=== PATIENT | female | born 1995 | race Caucasian/White ===

== ENCOUNTER 2022-06-28 09:59 | Outpatient (CLI) | payer OTHER ==
[2022-06-29 04:09] LABS: IMMUNOGLOBULIN A (IGA) 223 mg/dL (87-352); IMMUNOGLOBULIN G (IGG) 1037 mg/dL (586-1602); IMMUNOGLOBULIN M (IGM) 62 mg/dL (26-217)
[2022-07-04 14:08] LABS: CYSTIC FIBROSIS SCREEN Comment: (.)
== END 2022-06-28 10:00 | disposition home or self-care (01) ==
LOC: LAB 09:59
PROVIDERS: ATTEND Allergy & Immunology
DX: Z71.89 Other specified counseling (principal); R79.89 Other specified abnormal findings of blood chemistry; Z13.29 Encounter for screening for other suspected endocrine disorder; D68.2 Hereditary deficiency of other clotting factors; D68.51 Activated protein C resistance; Z79.01 Long term (current) use of anticoagulants; K92.1 Melena; J30.1 Allergic rhinitis due to pollen; J45.40 Moderate persistent asthma, uncomplicated; R06.09 Other forms of dyspnea
CPT/HCPCS: 81220; 81599; 82784; 82785

== ENCOUNTER 2022-06-29 18:32 | Outpatient (CLI) | payer OTHER ==
--- NOTE | 2022-06-30 09:49 | Ultrasound Report ---
PROCEDURE: Pelvic w/Transvaginal INDICATIONS: INFECTION FOLLOWING SURGERY TECHNIQUE: Real-time scanning was performed of the pelvic organs, with image documentation. Additional endovagi nal scanning was necessary due to incomplete visualization of the adnexal and endometrial structures by transabdominal scanning. COMPARISON: None. FINDINGS: Uterus: Uterus is retroverted and retroflexed and normal in size at 11.3 x 4.1 x 6.2 cm. The myomet rium is homogeneous. The endometrium measures 10 mm in combined thickness. Ovaries: The right ovary measures 6.1 x 3.6 x 5 cm, with a calculated ovarian volume of 37 cc. The left ovary measures 3.7 x 4.4 x 4.1 cm, with a calculated ovarian volume of 35 cc. The right ovary co ntains 2 cystic lesions with low level, internal echogenicity measuring 4.2 x 3.2 x 3.8 cm and 2.1 x 2 x 2.4 cm. The dominant right ovarian cystic lesion also contains The left ovary contains a solid-ap pearing mass with heterogeneous echogenicity measuring 3.3 x 3 x 3.5 cm Less than 12 follicles can b e seen in each ovary. No adnexal masses are seen. Other: No pathologic free abdominal or pelvic fluid. IMPRESSION: 1.Complex right ovarian cystic lesions probably represent hemorrhagic cysts or endometriomas. A dermo id is also a consideration. 6-12 week follow-up is recommended. 2.Solid appearing left ovarian mass measuring 3.3 x 3 x 3.5 cm. Heterogeneous echogenicity may indica te evolving hemorrhagic cyst. 6-12 week follow-up is recommended. Reviewed by: Anibal Talbert on 06/30/2022 9:48 AM [facility] Approved by: Anibal Talbert on 06/30/2022 9:48 AM [facility]UST Station ID: [id number]
== END 2022-06-29 18:33 | disposition home or self-care (01) ==
LOC: DI 18:32
PROVIDERS: ATTEND Nurse Practitioner
DX: T81.42XD Infection following a procedure, deep incisional surgical site, subsequent encounter (principal); R93.89 Abnormal findings on diagnostic imaging of other specified body structures; N83.9 Noninflammatory disorder of ovary, fallopian tube and broad ligament, unspecified

== ENCOUNTER 2022-08-02 21:58 | Outpatient (CLI) | payer OTHER ==
--- NOTE | 2022-08-03 10:23 | Ultrasound Report ---
PROCEDURE: Pelvic w/Transvaginal INDICATIONS: HISTORY OF OVARIAN CYST TECHNIQUE: Real-time scanning was performed of the pelvic organs, with image documentation. Additional endovagi nal scanning was necessary due to incomplete visualization of the adnexal and endometrial structures by transabdominal scanning. COMPARISON: 06/29/2022. FINDINGS: Uterus: Uterus is retroflexed and normal in size at 9.5 x 6.3 x 3.7 cm. The myometrium is homogeneo us. The endometrium measures 14.2 mm in combined thickness and is thickened. This should be correlat ed with the patient's menstrual history. Ovaries: The right ovary measures 6.5 x 6.1 x 4.1 cm, with a calculated ovarian volume of 85.5 cc. There are now 3 cysts within the patient's left ovary which are complex the largest measuring 4.6 x 4.3 x 3.7 c m previously measuring 4.2 cm in maximal dimension. There is new cyst measuring 2.3 x 2 x 1.7 cm and a third cyst measuring 1.9 x 1.9 x 1.5 cm previously measuring 2.4 cm in maximal dimension. The left ovary measures 4.9 x 3.4 x 3 cm cm, with a calculated ovarian volume of 26.2 cc. There is a complex cyst involving the left ovary measuring 2.5 x 2.3 x 2.1 cm relatively stable from prior exami nation.. There is greater than 12 follicles involving the patient's left ovary. There is a spmkt-[id number] amount of free fluid noted in the pelvis. IMPRESSION: 1. 3 complex right cystic ovarian lesions the largest remains relatively stable appearance of prior e xamination density measuring 4.6 cm in maximal dimension with a new lesion measuring 2.3 cm and sligh t interval decrease in size and the third lesion prior examination now measuring 1.9 cm in maximal di mension. 2. Complex cystic structure involving the patient's left ovary remains relatively stable at 2.5 cm. 3. Greater than 12 follicles involving the patient's left ovary. 4. Qvllp-[id number]-rxitfijd amount of free fluid noted in the pelvis. 5. Thickened endometrium at 14.2 mm. This should be correlated with the patient's menstrual history. 6. Given the largest complex cyst on the right has not significantly decreased in size if indicated f urther evaluation with a female pelvic MRI with and without intravenous gadolinium may be of further clinical value. Reviewed by: Luis M Vega MD on 08/03/2022 10:22 AM PDT Approved by: Luis M Vega MD on 08/03/2022 10:22 AM PDT Station ID: [id number]
== END 2022-08-02 21:59 | disposition home or self-care (01) ==
LOC: DI 21:58
PROVIDERS: ATTEND Nurse Practitioner
DX: N83.201 Unspecified ovarian cyst, right side (principal); R93.89 Abnormal findings on diagnostic imaging of other specified body structures

== ENCOUNTER 2022-08-23 08:01 | Outpatient (CLI) | payer OTHER ==
[2022-08-23] MEDS ORDERED: GADOBUTROL 7.5 MMOL/7.5 ML VIAL ONE (08:12)
--- NOTE | 2022-08-23 10:57 | MRI Report ---
PROCEDURE: MRI PELVIS W/WO INDICATIONS: BILATERAL OVARIAN CYST, PELVIC PAIN CONTRAST: gadavist 6.4ml TECHNIQUE: Coronal ultra fast SE, sagittal breath-hold T2 FSE; axial T1 FSE with and without fat saturation thro ugh the pelvis. Optional long- and short-axis uterine nonbreath-hold T2 FSE through the uterus. Sag ittal or axial dynamic ultra fast GE during administration of contrast. Post-contrast axial or coron al ultra fast GE / 2-D spoiled GE with fat saturation from the iliac crests to the symphysis. Option al diffusion weighted imaging and ADC may be performed. COMPARISON: Pelvic ultrasounds 06/29/2022, 08/02/2022. FINDINGS: Uterus: Uterus is normal in size. Endometrium is normal in thickness. Junctional zone is normal in thickness at 12 mm or less. scar. Adnexa: Both ovaries contain cystic structures which demonstrate intrinsic T1 hyperintensity and int ermediate T2 signal/T2 shading, approximately 3 in the right ovary and one in the left ovary. Largest in the right ovary measures 2.6 x 1.7 x 2.5 cm. The left ovarian finding measures 1.5 x 0.9 x 1.4 cm . Multiple small follicles also present within both ovaries. Urinary system: Bladder wall is normal in thickness. Distal ureters are non distended. Nodes and vessels: No pelvic or inguinal adenopathy by size criteria. Iliac vessels are normal in s ize. Bowel and peritoneum: Small amount of pelvic free fluid, likely physiologic. Inferior colon and smal l bowel loops are normal in caliber. Bones: Marrow demonstrates unremarkable overall signal. IMPRESSION: Cystic structures are present within both ovaries with signal characteristics suggestive of hemorrhag ic contents. Given the MR appearance and persistence over time compared to prior ultrasounds findings are suspicious for endometriomas. Reviewed by: Bruno Christensen MD on 08/23/2022 10:56 AM PDT Approved by: Bruno Christensen MD on 08/23/2022 10:56 AM PDT Station ID: [id number]
[2022-08-23] MEDS ORDERED: GADOBUTROL 7.5 MMOL/7.5 ML VIAL IVP ONE (16:46)
== END 2022-08-23 08:02 | disposition home or self-care (01) ==
LOC: DI 08:01
PROVIDERS: ATTEND Nurse Practitioner
DX: N83.292 Other ovarian cyst, left side (principal); N83.291 Other ovarian cyst, right side; R10.2 Pelvic and perineal pain
CPT/HCPCS: 72197; A9585

== ENCOUNTER 2022-09-27 13:31 | Outpatient (CLI) | payer OTHER ==
[2022-09-27 14:20] LABS: THYROID STIMULATING HORMONE 0.86 uIU/mL (0.34-5.60)
== END 2022-09-27 13:32 | disposition home or self-care (01) ==
LOC: LAB 13:31
PROVIDERS: ATTEND Nurse Practitioner
DX: R53.83 Other fatigue (principal); Z86.711 Personal history of pulmonary embolism; R07.9 Chest pain, unspecified
CPT/HCPCS: 36415; 84443; 85379

== ENCOUNTER 2023-01-17 08:00 | Outpatient (CLI) | payer OTHER ==
[2023-01-17 21:01] LABS: BACTERIAL VAGINOSIS DNA NEGATIVE (NEGATIVE); CANDIDA GLABRATA DNA NEGATIVE (NEGATIVE); CANDIDA GROUP DNA POSITIVE (NEGATIVE); CANDIDA KRUSEI DNA NEGATIVE (NEGATIVE); TRICHOMONAS VAGINALIS DNA NEGATIVE (NEGATIVE)
== END 2023-01-17 23:59 | disposition home or self-care (01) ==
LOC: LAB.WC 08:00
PROVIDERS: ATTEND Obstetrics & Gynecology
DX: N89.8 Other specified noninflammatory disorders of vagina (principal)
CPT/HCPCS: 81514